=== PATIENT | male | born 1990 | race Caucasian/White ===

== ENCOUNTER 2023-12-09 16:56 | Emergency (ER) | payer OTHER, SELFPAY ==
--- NOTE | ~2023-12-09 | XR_ITS ---
EXAMINATION: LEFT ANKLE, LEFT FOOT CLINICAL INFORMATION: Pain COMPARISON: None available. TECHNIQUE: 3 views left ankle, 3 views left foot FINDINGS: No bone, joint or soft tissue abnormality is seen XR/XR ankle LT min 3V IMPRESSION: Negative radiographs of the left ankle and foot.
--- NOTE | ~2023-12-09 | XR_ITS ---
EXAMINATION: LEFT ANKLE, LEFT FOOT CLINICAL INFORMATION: Pain COMPARISON: None available. TECHNIQUE: 3 views left ankle, 3 views left foot FINDINGS: No bone, joint or soft tissue abnormality is seen XR/XR foot LT min 3V IMPRESSION: Negative radiographs of the left ankle and foot.
[2023-12-09 17:13] VITALS: BP 147/99; PULSE 87; RESP 18; TEMP 36.8; O2SAT 98; BMI 25.3
--- NOTE | 2023-12-09 17:45 | ED.LOWEXIN ---
HPI - Extremity Injury (Lower) General Chief Complaint: Extremity Injury, Lower Stated Complaint: L foot pain Time Seen by Provider: 12/09/23 17:44 Source: patient, RN notes reviewed and old records reviewed Mode of arrival: ambulatory History of Present Illness ED Provider: Katerin Alvarado PA-C HPI Narrative: 33-year-old male no significant past medical history presenting to the ED complaining of left foot pain radiating to ankle since waking this morning. Denies known injury, trauma or fall/twisting. 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 Denies numbness/tingling or calf pain Related Data Allergies Allergy/AdvReac Type Severity Reaction Status Date / Time No Known Allergies Allergy Verified 12/09/23 17:14 Review of Systems Review of Systems: Constitutional: No Fever, No Chills ENT/Mouth: No Ear Pain, No Nasal Congestion, No sore throat, No Rhinorrhea, No Swallowing Difficulty Cardiovascular: No Chest Pain, No SOB Respiratory: No Cough Gastrointestinal: No Nausea, No Vomiting, No Abdominal pain Musculoskeletal: +joint pain, No Myalgias, + Joint Swelling Skin: No Skin Lesions, No rash Neuro: No Weakness, No Numbness, No Paresthesias Yes all other systems are reviewed and are negative Constitutional: Constitutional: Reports as per [facility] Past Medical History Attestation statement: The following information was validated with the patient. Source: old records reviewed Social History Social History Advance Directives: No Advance Directives Information Provided: No Do you have a plan to hurt others: No Plan Physical Exam Vital Signs: Vital Signs: Last Vital Signs Temp 98.2 F 12/09/23 18:56 Pulse 87 12/09/23 18:56 Resp 18 12/09/23 18:56 BP 147/99 H 12/09/23 18:56 Pulse Ox 98 12/09/23 18:56 O2 Del Method Room Air 12/09/23 18:56 BMI result Body Mass Index 25.3 Const: General: cooperative, healthy appearing and no acute distress Orientation/consciousness: patient oriented x3 Limitations: no limitations HEENT: Head: Yes normal to inspection and Yes atraumatic Ears: hearing grossly normal bilaterally General nose exam: Normal external nose present Face and sinus: Yes normal facial exam Eyes: General: appearance normal, both eyes and all related structures EOM: EOMs intact bilaterally Neck: Neck: Yes normal visual inspection and Yes no meningeal signs Resp: Effort & Inspection: normal respiratory effort and no respiratory distress Cardio: Rate: regular rate Skin: Rashes: no rashes Wounds: no wounds Neuro: General: patient oriented x3, tone normal and no meningeal signs Cranial nerves: Yes CN's II-XII intact bilaterally Gait exam (Neuro): Normal gait present Extrem: Other: Left foot with mild swelling to lateral aspect. Tender to palpation to 4th and 5th metatarsal. No plantar tenderness Left ankle nontender. Neurovascularly intact. No erythema/warmth or crepitus. Knee nontender. No calf tenderness Course Course Course Narrative: -[id number]--x-ray negative for acute fracture Thomas wrap offered however patient declined Results discussed with patient including worrisome signs and symptoms and strict return precautions, and when to return to the emergency department. They verbalized understanding and feel safe for discharge at this time. Medical Decision Making Medical Decision Making MDM Narrative: 33-year-old male no significant past medical history presenting to the ED complaining of left foot pain radiating to ankle since waking this morning. On exam vital signs stable, NAD, nontoxic appearing physical exam as noted above. Concern for sprain vs fracture. No evidence of septic joint/arthritis. Low suspicion for plantar fasciitis or DVT Plan: X-ray Please refer to course for remaining clinical decision making, interpretation of labs/imaging results, and discussions with consultants and/or family members. Differential Diagnosis Differential Diagnoses: The differential diagnosis associated with the presentation includes As above Independent Interpretation I performed an independent interpretation of an: Plain X-Ray Radiology Impression Discussion of test interpretation with radiology: I have reviewed the radiologist's reading. External Record Review External record reviewed: Inpatient record, Office record, Outpatient record, Prior outpatient labs, Prior outpatient radiology, Primary care record and Outside ED record Tests considered The following testing was considered but not selected: As above Prescription Management I considered prescription management with: Pain Medication and Antibiotic Discharge Plan Discharge Clinical Impression: Foot sprain Patient Disposition: Home, Self-Care Instructions: Foot Sprain (ED) Additional Instructions: Your x-ray did not show any fracture Ice and elevate Take Tylenol and ibuprofen for pain/swelling Follow-up with her doctor Return to the ED symptoms persist or worsen Referrals: Physician,Unknown J [Primary Care Provider] - Interventions: ED Discharge Assessment Last Done: 12/09/23 18:56 Discharge Date/Time: 12/09/23 18:56 Print Language: [place]
[2023-12-09 18:56] VITALS: BP 147/99; PULSE 87; RESP 18; TEMP 36.8; O2SAT 98
== END 2023-12-09 18:56 | disposition home or self-care (01) ==
PROVIDERS: Emergency Provider Emergency Medicine
DX: S93.601A Unspecified sprain of right foot, initial encounter (principal); X50.9XXA Other and unspecified overexertion or strenuous movements or postures, initial encounter; Y93.89 Activity, other specified; Y92.009 Unspecified place in unspecified non-institutional (private) residence as the place of occurrence of the external cause; Y99.9 Unspecified external cause status
CPT/HCPCS: 73610; 73630; 99282; 99283